=== PATIENT | female | born 1960 | race Caucasian/White ===

== ENCOUNTER 2019-05-18 13:45 | Outpatient (REF) | payer BC, SELFPAY ==
[2019-05-18 18:24] LABS: HCT 40.6 % (36.0-46.0); HGB 14.1 g/dL (12.0-15.5); Mean Corp. HGB Concentration 34.7 g/dL (32.0-36.0); Mean Corpuscular Volume 97.8 fL (80-95); Mean Platelet Volume 10.7 fL (8.0-11.0); Platelet Count 251 x1000/uL (130-400); RBC 4.15 m/cumm (4.00-5.20); RBC Distribution Width 12.6 % (11.7-14.6); White Blood Cell Count 8.45 k/cumm (4.4-10.8)
[2019-05-18 18:43] LABS: ALT 25 U/L (14-59); AST 15 U/L (15-37); Albumin 4.3 g/dL (3.4-5.0); Alkaline Phosphatase 101 U/L (46-116); Anion Gap 13.1 mmol/L (3-11); BUN 19 mg/dL (7-18); Bilirubin, Total 0.1 mg/dL (0.2-1.0); C-Reactive Protein 0.55 mg/dL (0.0-0.3); CO2 24.9 mmol/L (21.0-32.0); Calcium 9.4 mg/dL (8.5-10.1); Chloride 104 mmol/L (98-107); Creatine Kinase 61 U/L (26-192); Glucose 102 mg/dL (74-106); Sodium 142 mmol/L (136-145); TSH (W/Ref FT4) 1.24 uIU/mL (0.36-3.74); Total Protein 7.4 g/dL (6.4-8.2)
[2019-05-18 19:17] LABS: ESR 19 mm/hr (0-30)
[2019-05-21 15:12] LABS: Cyclic Citrullinated Peptide <2.5 U/mL (<5.0)
[2019-05-22 11:12] LABS: Lyme Ab w Rflx to Lyme Confirm Negative (Negative)
[2019-05-22 14:53] LABS: ANA Interpretation Negative (Negative)
== END 2019-05-18 14:05 ==
LOC: NCHCN 13:45
PROVIDERS: Visit Provider Nurse Practitioner Family
DX: M25.50 Pain in unspecified joint (principal); Z51.81 Encounter for therapeutic drug level monitoring
CPT/HCPCS: 80053; 82550; 85027; 85652; 86200; 84443; 86038; 86140; 86618

== ENCOUNTER 2019-06-12 03:09 | Outpatient (CLI) | payer SELFPAY | END 2019-06-12 03:29 | PROVIDERS: Visit Provider Nurse Practitioner Family | DX: J44.9 Chronic obstructive pulmonary disease, unspecified (principal) ==

== ENCOUNTER 2019-06-18 13:03 | Outpatient (REF) | payer BC, SELFPAY ==
[2019-06-18 20:49] LABS: Anion Gap 12.7 mmol/L (3-11); BUN 16 mg/dL (7-18); CO2 27.3 mmol/L (21.0-32.0); Chloride 100 mmol/L (98-107); Glucose 101 mg/dL (74-106); Potassium 3.6 mmol/L (3.5-5.1); Sodium 140 mmol/L (136-145)
== END 2019-06-18 13:23 ==
LOC: NCHCN 13:03
PROVIDERS: Visit Provider Nurse Practitioner Family
DX: I10 Essential (primary) hypertension (principal)
CPT/HCPCS: 80048